=== PATIENT | female | born 1940 | race Two or more races ===

== ENCOUNTER 2017-12-21 16:08 | Emergency (ER) | payer OTHER ==
[~2017-12-21] VITALS: Ht 160 cm; Wt 88.9 kg
--- NOTE | 2017-12-21 17:20 | Diagnostic Imaging Report ---
A single frontal view of the chest. HISTORY: Shortness of breath COMPARISON: None available. DISCUSSION: Portable technique, limits sensitivity of the exam. Mild right anterior oblique rotation. Tubes/Lines: None Lungs and pleura: Mild right apical pleural-parenchymal scarring. Diffuse prominence of the pulmonary interstitial markings. No evidence of a consolidative pneumonia or pulmonary alveolar edema. No definite pleural effusion or pneumothorax is identified. Heart and mediastinum: The cardiac silhouette appears within the upper limits of normal. Bones: No acute osseous lesion is identified, given this limited exam. Other: Metallic clips in the right upper quadrant of the abdomen are compatible with prior cholecystectomy. IMPRESSION: 1. No consolidative pneumonia or pulmonary alveolar edema. 2. Diffusely increased pulmonary interstitial markings, differential considerations include chronic interstitial lung disease or noncardiogenic pulmonary interstitial edema in the appropriate settings. Signed by: Dr. Rocky Hernadez D.O., M.M.M. on 12/21/2017 5:15 PM
[2017-12-21] MEDS ORDERED: LORAZEPAM INJ 2 MG/ML VIAL IV ONE (17:30)
[2017-12-21 17:37] LABS: BASOPHILS % 0.4 % (0.0-1.0); EOSINOPHILS # (AUTO) 0.3 (0.0-0.4); EOSINOPHILS % 4.5 % (0.0-6.0); HEMATOCRIT 39.6 % (34.2-44.1); HEMOGLOBIN 13.2 g/dL (12.0-16.0); LYMPHOCYTES # (AUTO) 1.9 (1.0-3.2); LYMPHOCYTES % 34.4 % (18.0-39.1); MEAN CORPUSCULAR HEMOGLOBIN 31.1 pg (28-32); MEAN CORPUSCULAR HGB CONC 33.3 g/dL (31-35); MEAN CORPUSCULAR VOLUME 93.4 fL (81-99); MONOCYTES # (AUTO) 0.5 (0.2-0.8); MONOCYTES % 9.4 % (4.4-11.3); NEUTROPHILS # (AUTO) 2.8 (2.1-6.9); NEUTROPHILS % 50.9 % (38.7-80.0); PLATELET COUNT 204 x10e3/uL (140-360); RED BLOOD COUNT 4.24 x10e6/uL (3.6-5.1); RED CELL DISTRIBUTION WIDTH 12.5 % (11.7-14.4)
[2017-12-21 17:46] LABS: BILIRUBIN,URINE NEGATIVE (NEGATIVE); CLARITY,URINE CLEAR (CLEAR); COLOR,URINE YELLOW (YELLOW); KETONES,URINE NEGATIVE (NEGATIVE); LEUKOCYTE ESTERASE ,URINE NEGATIVE (NEGATIVE); NITRITE,URINE NEGATIVE (NEGATIVE); PROTEIN,URINE DIPSTICK NEGATIVE (NEGATIVE); URINE UROBILINOGEN 0.2 mg/dL (0.2 - 1)
[2017-12-21 17:57] LABS: ALANINE AMINOTRANSFERASE 36 IU/L (0-55); ALBUMIN 3.8 g/dL (3.5-5.0); ALBUMIN/GLOBULIN RATIO 1.1 (0.8-2.0); ALKALINE PHOSPHATASE 109 IU/L (40-150); ANION GAP 16.4 mmol/L (8-16); BLOOD UREA NITROGEN 16 mg/dL (7-26); BUN/CREATININE RATIO 19 (6-25); CALCIUM 9.7 mg/dL (8.4-10.2); CARBON DIOXIDE 24 mmol/L (22-29); CHLORIDE 107 mmol/L (98-107); CREATINE KINASE 53 IU/L (29-168); CREATININE, SERUM 0.84 mg/dL (0.57-1.11); EST GLOMERULAR FILTRATION RATE > 60 ML/MIN (60-); GLUCOSE 98 mg/dL (74-118); POTASSIUM 4.4 mmol/L (3.5-5.1); SODIUM 143 mmol/L (136-145)
[2017-12-21 18:08] LABS: INR 1.03; PROTHROMBIN TIME 12.7 seconds (11.9-14.5)
[2017-12-21 18:09] LABS: PARTIAL THROMBOPLASTIN TIME 32.1 seconds (23.8-35.5)
[2017-12-21] MEDS: MORPHINE SULFATE 2 MG/ML SYR IV STA ×2 (18:33→18:38)
--- NOTE | 2017-12-21 19:46 | Diagnostic Imaging Report ---
Exam: Lumbar spine MRI without IV contrast History: Injury to spine, pain, loss of bladder function, concern for cord compression. Comparison studies: None Technique: Sagittal and axial T2 , sagittal T1 and IR, axial spin density oblique, coronal T2. 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 Recommend careful attention to lumbar counting if patient is a candidate for surgical intervention. Alignment: Normal lordosis. No scoliosis. Mild lumbar curvature convex to the right. Soft tissues: No T2 hyperintense inflammatory changes. Paraspinal muscles: Bilateral atrophy, worse/moderate from L4 to the sacrum No T2 hyperintense inflammatory changes. Lower thoracic cord: Normal in signal and morphology. The tip of the conus terminates at L1. Cauda equina: No masses. No arachnoiditis. Vertebrae: Superior L2 endplate compression fracture with associated endplate edema results in approximately 25% height loss. No retropulsion. No other fractures or abnormal marrow edema. No evidence of infection or neoplasm. Degenerative changes: T12-L1: Mildly degenerated disc. Small asymmetric right disc bulge does not result in significant canal or foraminal stenosis. L1-L2: Small asymmetric right disc bulge without significant canal or foraminal stenosis. L2-L3: Mild facet arthrosis. Patent canal and foramina. L3-L4: Symmetric disc bulge and mild facet arthrosis without significant canal or foraminal stenosis. L4-L5: Loss of T2/STIR disc signal. Asymmetric left disc bulge with small right foraminal annular fissure and mild facet arthrosis with mild left foraminal stenosis. Patent canal and right foramen. L5-S1: Transitional level. Patent canal and foramina. Incidental findings: Small T2 hyperintense masses in the uterus may reflect small fibroids. IMPRESSION: 1. 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 2. No canal stenosis or cauda equina compression. 3. Acute superior L2 endplate compression fracture (approximately 25% height loss) without retropulsion. 4. Degenerative changes with mild multilevel disc degeneration, facet arthrosis at L3-L4 and L4-L5 and mild left L4-L5 foraminal stenosis. Findings discussed with Dr. Gasca at 7:37 PM on 12/21/2017. Signed by: Dr. Harish Cary M.D. on 12/21/2017 7:42 PM
[2017-12-21 21:15] VITALS: BP 199/82
== END 2017-12-21 21:15 | disposition home or self-care (01) ==
LOC: ER 16:08
DX: M54.5 Low back pain (principal); S32.020A Wedge compression fracture of second lumbar vertebra, initial encounter for closed fracture; X50.0XXA Overexertion from strenuous movement or load, initial encounter; I10 Essential (primary) hypertension; E78.5 Hyperlipidemia, unspecified
CPT/HCPCS: 36415; 71045; 72148; 80053; 81001; 82550; 82553; 83880; 84484; 85025; 85610; 85730; 99284; J2060; J2270

== ENCOUNTER 2019-09-18 10:10 | Emergency (ER) | payer MEDICARE, OTHER ==
[~2019-09-18] VITALS: Ht 162.6 cm; Wt 97.5 kg
[2019-09-18] MEDS ORDERED: MORPHINE SULFATE INJ 4 MG/ML INJ 1ML IV STA (10:34)
[2019-09-18] MEDS ORDERED: ONDANSETRON HCL INJ 2MG/ML 2ML 2 MG/ML VIAL IV STA (10:34)
[2019-09-18] MEDS ORDERED: KETOROLAC TROMETHAMINE 30 MG/ML VIAL IV STA (10:34)
[2019-09-18] MEDS ORDERED: SODIUM CHLORIDE 0.9% 500ML 500 ML IV STA (10:41)
[2019-09-18] MEDS ORDERED: SODIUM CHLORIDE 0.9% 500ML 500 ML ONE (10:48)
[2019-09-18] MEDS ORDERED: FAMOTIDINE 20 MG/2 ML VIAL IV STA (12:21)
[2019-09-18] MEDS ORDERED: METHYLPREDNISOLONE SOD SUCC 125 MG/2ML VIAL ONE (12:27)
[2019-09-18] MEDS ORDERED: DIPHENHYDRAMINE HCL INJ 50 MG/ML VIAL IV ONE (12:30)
[2019-09-18] MEDS ORDERED: METHYLPREDNISOLONE SOD SUCC 125 MG/2ML VIAL IV ONE (12:30)
--- NOTE | 2019-09-18 12:51 | Emergency Department Note ---
History of Present Illnes History of Present Illness Chief Complaint: left flank/ lbp History of Present Illness This is a 79 year old Other female. was doing well prior to this. Historian: Patient, Family Member Arrival Mode: Car History limited by: condition of the patient (normal) Finger Waver Required: No Onset (how long ago): hour(s) (6) Location: flank Quality: sharp Radiation: Reports flank Severity: moderate Onset quality: sudden Duration (how long): hour(s) (6) Timing of current episode: constant Progression: worsening Chronicity: new Context: Denies recent illness, Denies recent surgery, Denies recent immobili zation, Denies recent travel, Denies trauma/injury, Denies new medications, Denies hx of DVT/PE, Denies non-compliance w/ medications Relieving factors: none Exacerbating factors: none Associated symptoms: Reports denies other symptoms Treatments prior to arrival: none Past Medical/Family History Physician Review I have reviewed the patient's past medical and family history. Any updates have been documented here. Past Medical History Recent Fever: No Clinical Suspicion of Infectio: No New/Unexplained Change in Ment: No Past Medical History: Hypertension, Kidney Stones, Hyperlipedemia Past Surgical History: Cholecysctectomy, Tubal Ligation Other Surgery: lithotripsy Social History Smoking Cessation: Never Smoker Counseling Performed: No Alcohol Use: Social Any Illegal Drug Use: No TB Exposure/Symptoms: No Physically hurt or threatened: No Family History Family history of heart diseas: Yes Other Any Pre-Existing Lines (PICC,: No Is patient up to date on immun: Yes Last Flu: UTD Last Pneumovax: UTD Review of Systems Review of Systems Constitutional: Reports no symptoms EENTM: Reports no symptoms Cardiovascular: Reports no symptoms Respiratory: Reports no symptoms Gastrointestinal: Reports as per HPI Genitourinary: Reports no symptoms Musculoskeletal: Reports as per HPI Integumentary: Reports no symptoms Neurological: Reports no symptoms Psychological: Reports no symptoms Endocrine: Reports no symptoms Hematological/Lymphatic: Reports no symptoms Review of other systems: All other systems negative Physical Exam Related Data Allergies: Coded Allergies: Iodinated Contrast Media (Verified Allergy, Intermediate, eye swelling, ) Uncoded Allergies: STATINS (Allergy, Unknown, 09/18/19) lipitor is the only one she has tried and had a rx to but does not know what the rx was. Triage Vital Signs Vital Signs Date Time Temp Pulse Resp B/P (MAP) Pulse Ox O2 Delivery O2 Flow Rate FiO2 09/18/19 10:12 98.3 65 20 225/93 96 Vital signs reviewed: Yes Physical Exam CONSTITUTIONAL Constitutional: Present well-developed, Present well-nourished HENT HENT: Present normocephalic, Present atraumatic, Present oropharynx clear/moist, Present nose normal HENT L/R: Present left ext ear normal, Present right ext ear normal EYES Eyes: Reports PERRL, Reports conjunctivae normal, Reports EOM normal NECK Neck: Present ROM normal, Present supple PULMONARY Pulmonary: Present effort normal, Present breath sounds normal CARDIOVASCULAR Cardiovascular: Present regular rhythm, Present heart sounds normal, Present capillary refill normal, Present normal rate GASTROINTESTINAL Abdominal: Present soft, Present nontender, Present bowel sounds normal GENITOURINARY Genitourinary: Present exam deferred SKIN Skin: Present warm, Present dry MUSCULOSKELETAL Musculoskeletal: Present ROM normal, Present tenderness (left cva) NEUROLOGICAL Neurological: Present alert, Present oriented x 3, Present no gross motor or sensory deficits PSYCHOLOGICAL Psychological: Present mood/affect normal, Present judgement normal Results Laboratory Lab results reviewed: Yes (cbc/bmp/ua all normal) Imaging Imaging results reviewed: Yes (ct abd/pelvis kidney stone 4mm left uv junction) Assessment & Plan Medical Decision Making MDM rx meds(see below) f/u urology Reassessment Reassessment [place] [employer] OVERDOSE RISK SCORE= 270. no more pain s/p meds Assessment & Plan Final Impression: (1) Ureterolithiasis (2) Hypertension Depart Disposition: HOME, SELF-CARE Last Vital Signs Date Time Temp Pulse Resp B/P (MAP) Pulse Ox O2 Delivery O2 Flow Rate FiO2 09/18/19 10:12 98.3 65 20 225/93 96 Home Meds Active Scripts Cefdinir (OMNICEF) 300 Mg Capsule, 300 MG PO Q12H, #20 CAP Prov:NOEMI GAYTAN 09/18/19 Tramadol Hcl (ULTRAM) 50 Mg Tablet, 50 MG PO Q4HR PRN for MODERATE PAIN (4-6), #30 TAB take after toradol to control pain if need be Prov:NOEMI GAYTAN 09/18/19 Tamsulosin Hcl* (FLOMAX*) 0.4 Mg Cap, 0.4 MG PO DAILY, #15 CAP Prov:NOEMI GAYTAN 09/18/19 Ketorolac Tromethamine (TORADOL) 10 Mg Tablet, 10 TAB PO DAILY PRN for MODERATE PAIN (4-6), #20 TAB Prov:NOEMI GAYTAN 09/18/19 Ondansetron (ONDANSETRON ODT) 8 Mg Tab.rapdis, 4 TAB PO Q4HR PRN for NAUSEA AND VOMITING, #20 TAB 1 Refill Prov:NOEMI GAYTAN 09/18/19 Medications in the ED Ketorolac Tromethamine 30 mg ONCE STAT IV Last administered on 09/18/19at 10:55; Admin Dose 30 MG; Start 09/18/19 at 10:34; Stop 09/18/19 at 10:47; Status DC Ondansetron HCl 4 mg NOW STAT IV Last administered on 09/18/19at 10:50; Admin Dose 4 MG; Start 09/18/19 at 10:34; Stop 09/18/19 at 10:47; Status DC Morphine Sulfate 4 mg ONCE STAT IV Last administered on 09/18/19at 10:55; Admin Dose 4 MG; Start 09/18/19 at 10:34; Stop 09/18/19 at 10:47; Status DC Sodium Chloride 500 ml @ 500 mls/hr Q1H STAT IV Last administered on 09/18/19at 10:50; Admin Dose 500 MLS/HR; Start 09/18/19 at 10:41; Stop 09/18/19 at 11:40; Status DC [facility] ; Start 09/18/19 at 10:48; Stop 09/18/19 at 10:44; Status DC Diphenhydramine HCl 25 mg NOW ONCE IV Last administered on 09/18/19at 12:22; Admin Dose 25 MG; Start 09/18/19 at 12:30; Stop 09/18/19 at 12:31; Status DC Famotidine 20 mg NOW STAT IV Last administered on 09/18/19at 12:22; Admin Dose 20 MG; Start 09/18/19 at 12:21; Stop 09/18/19 at 12:29; Status DC Methylprednisolone Sodium Succinate 125 mg ONCE ONCE IV Last administered on 09/18/19at 12:22; Admin Dose 125 MG; Start 09/18/19 at 12:30; Stop 09/18/19 at 12:31; Status DC Methylprednisolone Sodium Succinate 125 mg [facility] ONCE .ROUTE ; Start 09/18/19 at 12:27; Stop 09/18/19 at 12:23; Status DC NOEMI GAYTAN Sep 18, 2019 12:51
[2019-09-18] MEDS ORDERED: HYDROCODONE/APAP 5MG-325MG TAB PO STA (13:33)
--- NOTE | 2019-09-18 14:00 | Diagnostic Imaging Report ---
EXAM: CT Abdomen and Pelvis WITHOUT intravenous contrast INDICATION: Abdominal pain COMPARISON: Lumbar spine MRI 12/21/2017 TECHNIQUE: Abdomen and pelvis were scanned utilizing a multidetector helical scanner from the lung base to the pubic symphysis without administration of IV contrast. Coronal and sagittal reformations were obtained. IV CONTRAST: None ORAL CONTRAST: None COMPLICATIONS: None RADIATION DOSE: Total DLP: 288 mGy*cm Dose modulation, iterative reconstruction, and/or weight based adjustment of the mA/kV was utilized to reduce the radiation dose to as low as reasonably achievable. FINDINGS: LOWER THORAX: Mild dependent subsegmental atelectasis. HEPATOBILIARY: Evaluation of the liver is partially secured by streak artifact related to the patient's arms. No definite focal liver lesion. Status post cholecystectomy. SPLEEN: No splenomegaly. PANCREAS: No focal masses or ductal dilatation. ADRENALS: No adrenal nodules. KIDNEYS/URETERS: 4 mm left distal ureteral calculus at the left ureterovesical junction with moderate associated left hydroureteronephrosis and left perinephric fat stranding. No right urinary calculi, hydroureter or hydronephrosis. PELVIC ORGANS/BLADDER: Unremarkable. PERITONEUM / RETROPERITONEUM: No free air or fluid. LYMPH NODES: No lymphadenopathy. VESSELS: Moderate scattered atherosclerotic calcifications of the nonaneurysmal abdominal aorta and major branches. GI TRACT: No abnormal bowel thickening. No bowel obstruction. Normal appendix. BONES AND SOFT TISSUES: No acute osseous injury. Compression deformity of the superior endplate of L3 is unchanged from the lumbar spine MRI of 12/21/2017. No suspicious lytic or blastic lesions. IMPRESSION: 4 mm left distal ureteral calculus at the left ureterovesical junction results in moderate associated left hydroureteronephrosis and left perinephric fat stranding suggestive of upper urinary tract infection. No right urinary calculi or hydronephrosis. Signed by: Nga Bell MD on 09/18/2019 1:56 PM
[2019-09-18] MEDS ORDERED: HYDRALAZINE HCL 20 MG/ML VIAL ONE (14:13)
--- NOTE | 2019-09-18 14:16 | NUR ---
Urine culture collected and sent to the hospital lab via mass spec.
[2019-09-18] MEDS ORDERED: ULTRAM50 MG PO (14:17)
[2019-09-18] MEDS ORDERED: KETOROLAC TROME10 MG PO (14:17)
[2019-09-18] MEDS ORDERED: ONDANSETRON ODT8 MG PO (14:17)
[2019-09-18] MEDS ORDERED: FLOMAX0.4 MG PO (14:17)
[2019-09-18] MEDS ORDERED: CEFDINIR300 MG PO (14:18)
[2019-09-18 14:47] VITALS: BP 174/74
== END 2019-09-18 14:43 | disposition home or self-care (01) ==
LOC: FSED 10:10
DX: M54.5 Low back pain (principal); N20.1 Calculus of ureter; I10 Essential (primary) hypertension; E78.5 Hyperlipidemia, unspecified
CPT/HCPCS: 74176; 80048; 81003; 85025; 87086; 96374; 96375; 99284; J0360; J1200; J1885; J2270; J2405; J2930; J7040

== ENCOUNTER 2020-06-06 13:55 | Emergency (ER) | payer MEDICARE ==
[~2020-06-06] VITALS: Ht 160 cm; Wt 82.2 kg
[~2020-06-06 13:55] MED LIST: CEFDINIR300 MG PO; FLOMAX0.4 MG PO; KETOROLAC TROME10 MG PO; ONDANSETRON ODT8 MG PO; ULTRAM50 MG PO
[2020-06-06] MEDS ORDERED: CLONIDINE HCL 0.2 MG TAB PO ONE (14:30)
[2020-06-06] MEDS ORDERED: ROPINIROLE HCL1 MG PO (14:50)
[2020-06-06] MEDS ORDERED: PROVENTIL HFA6.7 GM INH (14:50)
[2020-06-06] MEDS ORDERED: CLONAZEPAM0.5 MG PO (14:50)
[2020-06-06] MEDS ORDERED: NEURONTIN300 MG PO (14:50)
[2020-06-06] MEDS ORDERED: ASPIRIN EC81 MG PO (14:50)
[2020-06-06] MEDS ORDERED: OCUVITE TABLET1 EAC1 PO (14:50)
[2020-06-06] MEDS ORDERED: TYLENOL # 31 EA PO (14:50)
[2020-06-06] MEDS ORDERED: MAGNESIUM OXID400 MG PO (14:50)
[2020-06-06] MEDS ORDERED: BIOTIN10 MG (14:50)
[2020-06-06] MEDS ORDERED: CARVEDILOL12.5 MG PO (14:50)
[2020-06-06] MEDS ORDERED: BIOTIN2500 MCG (14:50)
[2020-06-06 16:01] VITALS: BP 176/90
== END 2020-06-06 15:32 | disposition home or self-care (01) ==
LOC: FSED 14:19
DX: S00.83XA Contusion of other part of head, initial encounter (principal); R11.2 Nausea with vomiting, unspecified; W18.09XA Striking against other object with subsequent fall, initial encounter; Y93.01 Activity, walking, marching and hiking; Y92.008 Other place in unspecified non-institutional (private) residence as the place of occurrence of the external cause; M54.9 Dorsalgia, unspecified; G89.29 Other chronic pain; I25.2 Old myocardial infarction; Z87.442 Personal history of urinary calculi
CPT/HCPCS: 70450; 72125; 99283

== ENCOUNTER 2022-01-06 16:56 | Inpatient (IN) | payer MEDICARE ==
[~2022-01-06] VITALS: Ht 160 cm; Wt 96.2 kg
[~2022-01-06 16:56] MED LIST changes: +ASPIRIN EC81 MG PO; +BIOTIN10 MG; +BIOTIN2500 MCG; +CARVEDILOL12.5 MG PO; +CLONAZEPAM0.5 MG PO; +MAGNESIUM OXID400 MG PO; +NEURONTIN300 MG PO; +OCUVITE TABLET1 EAC1 PO; +PROVENTIL HFA6.7 GM INH; +ROPINIROLE HCL1 MG PO; +TYLENOL # 31 EA PO
[2022-01-06 17:22] LABS: BASOPHILS % 0.4 % (0.0-1.0); EOSINOPHILS # (AUTO) 0.1 (0.0-0.4); EOSINOPHILS % 1.6 % (0.0-6.0); HEMATOCRIT 48.7 % (34.2-44.1); HEMOGLOBIN 15.8 g/dL (12.0-16.0); LYMPHOCYTES # (AUTO) 2.2 (1.0-3.2); LYMPHOCYTES % 27.3 % (18.0-39.1); MEAN CORPUSCULAR HEMOGLOBIN 31.2 pg (28-32); MEAN CORPUSCULAR HGB CONC 32.4 g/dL (31-35); MEAN CORPUSCULAR VOLUME 96.1 fL (81-99); MONOCYTES # (AUTO) 0.7 (0.2-0.8); MONOCYTES % 8.2 % (4.4-11.3); NEUTROPHILS % 62.1 % (38.7-80.0); PLATELET COUNT 231 x10e3/uL (140-360); RED BLOOD COUNT 5.07 x10e6/uL (3.6-5.1); RED CELL DISTRIBUTION WIDTH 12.3 % (11.7-14.4)
[2022-01-06 17:34] LABS: ALBUMIN 3.9 g/dL (3.5-5.0); ANION GAP 16.3 mmol/L (8-16); CALCIUM 9.5 mg/dL (8.4-10.2); CREATININE, SERUM 1.05 mg/dL (0.57-1.11); POTASSIUM 4.3 mmol/L (3.5-5.1)
[2022-01-06 18:41] LABS: CLARITY,URINE CLEAR (CLEAR); COLOR,URINE AMBER (YELLOW); KETONES,URINE NEGATIVE (NEGATIVE); LEUKOCYTE ESTERASE ,URINE NEGATIVE (NEGATIVE); NITRITE,URINE NEGATIVE (NEGATIVE); PROTEIN,URINE DIPSTICK TRACE (NEGATIVE); URINE UROBILINOGEN 1 mg/dL (0.2 - 1)
[2022-01-06] MEDS ORDERED: ONDANSETRON HCL INJ 2MG/ML 2ML 2 MG/ML VIAL IV STA (18:48)
[2022-01-06 18:51] LABS: BACTERIA,URINE FEW /HPF; EPITHELIAL CELLS,URINE FEW /LPF; WBC,URINE (MAN) 0-5 /HPF (0-5)
[2022-01-06] MEDS: ONDANSETRON HCL INJ 2MG/ML 2ML 2 MG/ML VIAL IV PRN (19:35)
[2022-01-06] MEDS: FENTANYL CITRATE/PF 100MCG/2 ML INJ IV PRN ×2 (19:35→23:30)
[2022-01-06] MEDS ORDERED: BENZOCAINE/TETRACAINE/BUTAMBEN AERO SPRAY 56 GM CAN TOP ONE (20:15)
[2022-01-06] MEDS ORDERED: BENZOCAINE/TETRACAINE/BUTAMBEN AERO SPRAY 56 GM CAN ONE (20:29)
[2022-01-06] MEDS: SODIUM CHLORIDE 0.9% 1000ML 1,000 ML IV SCH (20:35)
[2022-01-07] VITALS (7 sets, daily range): BP systolic 121–154; BP diastolic 60–72
[2022-01-07] MEDS ORDERED: INFLUENZA VIRUS VAC SPLIT INJ 0.5 ML SYR IM SCH (03:17)
[2022-01-07] MEDS: ONDANSETRON HCL INJ 2MG/ML 2ML 2 MG/ML VIAL IV PRN ×3 (04:01→16:16)
[2022-01-07] MEDS: Morphine 4mg INJECTION 4 MG/ML INJ IV PRN ×3 (04:01→16:16)
[2022-01-07 06:52] LABS: BASOPHILS % 0.5 % (0.0-1.0); EOSINOPHILS # (AUTO) 0.1 (0.0-0.4); EOSINOPHILS % 0.9 % (0.0-6.0); HEMATOCRIT 42.9 % (34.2-44.1); HEMOGLOBIN 14.4 g/dL (12.0-16.0); LYMPHOCYTES # (AUTO) 2.2 (1.0-3.2); LYMPHOCYTES % 25.9 % (18.0-39.1); MEAN CORPUSCULAR HEMOGLOBIN 31.4 pg (28-32); MEAN CORPUSCULAR HGB CONC 33.6 g/dL (31-35); MEAN CORPUSCULAR VOLUME 93.7 fL (81-99); MONOCYTES # (AUTO) 0.9 (0.2-0.8); MONOCYTES % 10.7 % (4.4-11.3); NEUTROPHILS # (AUTO) 5.3 (2.1-6.9); NEUTROPHILS % 61.5 % (38.7-80.0); PLATELET COUNT 205 x10e3/uL (140-360); RED BLOOD COUNT 4.58 x10e6/uL (3.6-5.1); RED CELL DISTRIBUTION WIDTH 12.7 % (11.7-14.4)
[2022-01-07 07:14] LABS: ANION GAP 12.2 mmol/L (8-16); CALCIUM 8.6 mg/dL (8.4-10.2); CREATININE, SERUM 1.14 mg/dL (0.57-1.11); POTASSIUM 4.2 mmol/L (3.5-5.1)
[2022-01-07] MEDS: SODIUM CHLORIDE 0.9% 1000ML 1,000 ML IV SCH (08:22)
[2022-01-07] MEDS ORDERED: ALBUTEROL/IPRATROPIUM 3 ML NEB NEB PRN (12:15)
[2022-01-07] MEDS ORDERED: CHLORASEPTIC SPRAY 177 ML BTL MM PRN (12:15)
[2022-01-07] MEDS: LACTATED RINGER'S 1,000 ML INJ SCH ×2 (13:05→22:51)
[2022-01-07] MEDS ORDERED: FAMOTIDINE 20 MG/2 ML VIAL IV SCH (17:00)
[2022-01-07] MEDS: ENOXAPARIN 30 MG/0.3 ML SYR SC SCH (17:06)
[2022-01-08] VITALS (7 sets, daily range): BP systolic 124–167; BP diastolic 50–58
[2022-01-08] MEDS: Morphine 4mg INJECTION 4 MG/ML INJ IV PRN ×2 (00:04→04:44)
[2022-01-08] MEDS: LACTATED RINGER'S 1,000 ML INJ SCH ×2 (08:30→18:30)
[2022-01-08] MEDS: FAMOTIDINE 20 MG/2 ML VIAL IV SCH ×2 (09:00→21:00)
[2022-01-08] MEDS ORDERED: HYDRALAZINE HCL 20 MG/ML VIAL IV PRN (12:45)
[2022-01-08] MEDS ORDERED: SODIUM CHLORIDE 0.9% 250ML IRRIG IR SCH (14:30)
[2022-01-08] MEDS: ENOXAPARIN 30 MG/0.3 ML SYR SC SCH (17:33)
[2022-01-09] VITALS (7 sets, daily range): BP systolic 142–165; BP diastolic 50–77
[2022-01-09] MEDS: LACTATED RINGER'S 1,000 ML INJ SCH ×2 (04:30→14:30)
[2022-01-09] MEDS: FAMOTIDINE 20 MG/2 ML VIAL IV SCH (09:00)
[2022-01-09] MEDS: ENOXAPARIN 30 MG/0.3 ML SYR SC SCH (17:00)
== END 2022-01-09 18:00 | disposition home or self-care (01) | DRG 389 ==
LOC: ER 17:08 → ERHOLD 19:36 → MED/SURG 01-07 01:46
PROVIDERS: ADMIT Internal Medicine; ATTEND Internal Medicine
PROC: 0D9670Z Drainage of Stomach with Drainage Device, Via Natural or Artificial Opening (ICD-10-PCS; principal; 2022-01-06)
DX: K56.51 Intestinal adhesions [bands], with partial obstruction (principal); J96.10 Chronic respiratory failure, unspecified whether with hypoxia or hypercapnia; I10 Essential (primary) hypertension; R91.8 Other nonspecific abnormal finding of lung field; J44.9 Chronic obstructive pulmonary disease, unspecified; E66.9 Obesity, unspecified; Z68.37 Body mass index [BMI] 37.0-37.9, adult; I25.2 Old myocardial infarction; Z87.442 Personal history of urinary calculi; Z90.49 Acquired absence of other specified parts of digestive tract; Z95.0 Presence of cardiac pacemaker; Z88.8 Allergy status to other drugs, medicaments and biological substances; Z91.041 Radiographic dye allergy status; Z99.81 Dependence on supplemental oxygen; Z20.822 Contact with and (suspected) exposure to COVID-19
CPT/HCPCS: 36415; 71045; 74018; 74176; 80048; 80053; 81001; 83690; 83880; 84484; 85025; 93005; 94799; 99284; J1650; J2270; J2405; J3010; J7030; J7121

== ENCOUNTER 2022-02-02 09:38 | Emergency (ER) | payer MEDICARE ==
[~2022-02-02] VITALS: Ht 160 cm; Wt 96.2 kg
[2022-02-02] MEDS ORDERED: SODIUM CHLORIDE 0.9% 1000ML 1,000 ML IV STA (09:58)
[2022-02-02] MEDS ORDERED: DICYCLOMINE HCL 20 MG/2 ML VIAL IM ONE (10:00)
[2022-02-02] MEDS ORDERED: ONDANSETRON HCL INJ 2MG/ML 2ML 2 MG/ML VIAL IV PRN (10:00)
[2022-02-02 10:21] LABS: BASOPHILS % 0.4 % (0.0-1.0); EOSINOPHILS # (AUTO) 0.2 (0.0-0.4); HEMATOCRIT 46.7 % (34.2-44.1); HEMOGLOBIN 15.2 g/dL (12.0-16.0); LYMPHOCYTES # (AUTO) 1.9 (1.0-3.2); LYMPHOCYTES % 27.1 % (18.0-39.1); MEAN CORPUSCULAR HEMOGLOBIN 30.8 pg (28-32); MEAN CORPUSCULAR HGB CONC 32.5 g/dL (31-35); MEAN CORPUSCULAR VOLUME 94.7 fL (81-99); MONOCYTES # (AUTO) 0.7 (0.2-0.8); MONOCYTES % 10.2 % (4.4-11.3); NEUTROPHILS # (AUTO) 4.1 (2.1-6.9); NEUTROPHILS % 58.7 % (38.7-80.0); PLATELET COUNT 203 x10e3/uL (140-360); RED BLOOD COUNT 4.93 x10e6/uL (3.6-5.1); RED CELL DISTRIBUTION WIDTH 11.8 % (11.7-14.4)
[2022-02-02 10:42] LABS: ALBUMIN 3.7 g/dL (3.5-5.0); ANION GAP 15.7 mmol/L (8-16); CALCIUM 9.1 mg/dL (8.4-10.2); CREATININE, SERUM 1.05 mg/dL (0.57-1.11); POTASSIUM 3.7 mmol/L (3.5-5.1)
[2022-02-02 12:08] LABS: CLARITY,URINE CLOUDY (CLEAR); COLOR,URINE YELLOW (YELLOW); KETONES,URINE 1+ (NEGATIVE); LEUKOCYTE ESTERASE ,URINE SMALL (NEGATIVE); NITRITE,URINE NEGATIVE (NEGATIVE); PROTEIN,URINE DIPSTICK 1+ (NEGATIVE); URINE UROBILINOGEN 1 mg/dL (0.2 - 1)
[2022-02-02 12:44] LABS: BACTERIA,URINE MODERATE /HPF; EPITHELIAL CELLS,URINE MODERATE /LPF; WBC,URINE (MAN) 21-50 /HPF (0-5)
[2022-02-02] MEDS ORDERED: ONDANSETRON ODT4 MG PO (12:44)
[2022-02-02] MEDS ORDERED: CEPHALEXIN500 MG PO (12:46)
== END 2022-02-02 13:09 | disposition home or self-care (01) ==
LOC: ER 09:42
DX: N39.0 Urinary tract infection, site not specified (principal); R19.7 Diarrhea, unspecified; R53.1 Weakness; Z28.310 Unvaccinated for COVID-19; Z88.8 Allergy status to other drugs, medicaments and biological substances; Z91.041 Radiographic dye allergy status; Z20.822 Contact with and (suspected) exposure to COVID-19
CPT/HCPCS: 36415; 74176; 80053; 81001; 83690; 84484; 85025; 87400; 93005; 99284; J0500; J2405; J7030; U0002

== ENCOUNTER 2022-06-02 17:13 | Inpatient (IN) | payer MEDICARE ==
[~2022-06-02] VITALS: Ht 162.6 cm; Wt 104.8 kg
[~2022-06-02 17:13] MED LIST changes: +CEPHALEXIN500 MG PO; +ONDANSETRON ODT4 MG PO
[2022-06-02 18:13] LABS: BASOPHILS % 0.6 % (0.0-1.0); EOSINOPHILS # (AUTO) 0.2 (0.0-0.4); HEMATOCRIT 40.1 % (34.2-44.1); HEMOGLOBIN 13.7 g/dL (12.0-16.0); LYMPHOCYTES # (AUTO) 2.2 (1.0-3.2); LYMPHOCYTES % 31.5 % (18.0-39.1); MEAN CORPUSCULAR HEMOGLOBIN 32.5 pg (28-32); MEAN CORPUSCULAR HGB CONC 34.2 g/dL (31-35); MEAN CORPUSCULAR VOLUME 95.2 fL (81-99); MONOCYTES # (AUTO) 0.6 (0.2-0.8); MONOCYTES % 8.7 % (4.4-11.3); NEUTROPHILS # (AUTO) 3.8 (2.1-6.9); NEUTROPHILS % 55.6 % (38.7-80.0); PLATELET COUNT 195 x10e3/uL (140-360); RED BLOOD COUNT 4.21 x10e6/uL (3.6-5.1); RED CELL DISTRIBUTION WIDTH 12.9 % (11.7-14.4)
[2022-06-02 18:29] LABS: ALBUMIN 3.5 g/dL (3.5-5.0); ALBUMIN/GLOBULIN RATIO 0.9 (0.8-2.0); ANION GAP 15.6 mmol/L (8-16); CALCIUM 8.8 mg/dL (8.4-10.2); CREATININE, SERUM 1.03 mg/dL (0.57-1.11); POTASSIUM 4.6 mmol/L (3.5-5.1)
[2022-06-02 18:35] LABS: CREATINE KINASE MB 1.7 ng/mL (0-5.0)
[2022-06-02 18:47] LABS: CLARITY,URINE CLEAR (CLEAR); COLOR,URINE YELLOW (YELLOW); KETONES,URINE NEGATIVE (NEGATIVE); LEUKOCYTE ESTERASE ,URINE NEGATIVE (NEGATIVE); NITRITE,URINE NEGATIVE (NEGATIVE); PROTEIN,URINE DIPSTICK NEGATIVE (NEGATIVE); URINE UROBILINOGEN 0.2 mg/dL (0.2 - 1)
[2022-06-02 18:55] LABS: AMORPHOUS SEDIMENT,URINE MODERATE (FEW); BACTERIA,URINE FEW /HPF; EPITHELIAL CELLS,URINE FEW /LPF
[2022-06-02] MEDS ORDERED: ONDANSETRON HCL INJ 2MG/ML 2ML 2 MG/ML VIAL IV STA (19:58)
[2022-06-02] MEDS ORDERED: FAMOTIDINE 20 MG/2 ML VIAL IV STA (19:58)
[2022-06-02] MEDS ORDERED: Morphine 4mg INJECTION 4 MG/ML INJ IV STA (19:58)
[2022-06-02] MEDS ORDERED: ASPIRIN 81 MG CHEW TAB PO ONE (20:15)
[2022-06-02] MEDS: ROPINIROLE HCL 2 MG TAB PO SCH (22:24)
[2022-06-03 03:42] LABS: BASOPHILS % 0.6 % (0.0-1.0); EOSINOPHILS # (AUTO) 0.3 (0.0-0.4); EOSINOPHILS % 4.1 % (0.0-6.0); HEMATOCRIT 38.1 % (34.2-44.1); HEMOGLOBIN 12.1 g/dL (12.0-16.0); LYMPHOCYTES # (AUTO) 2.2 (1.0-3.2); LYMPHOCYTES % 32.9 % (18.0-39.1); MEAN CORPUSCULAR HEMOGLOBIN 30.3 pg (28-32); MEAN CORPUSCULAR HGB CONC 31.8 g/dL (31-35); MEAN CORPUSCULAR VOLUME 95.3 fL (81-99); MONOCYTES # (AUTO) 0.7 (0.2-0.8); MONOCYTES % 10.6 % (4.4-11.3); NEUTROPHILS # (AUTO) 3.4 (2.1-6.9); NEUTROPHILS % 51.5 % (38.7-80.0); PLATELET COUNT 186 x10e3/uL (140-360); RED CELL DISTRIBUTION WIDTH 12.8 % (11.7-14.4)
[2022-06-03 04:06] LABS: CREATINE KINASE MB 1.4 ng/mL (0-5.0)
[2022-06-03 04:22] LABS: ALBUMIN 2.9 g/dL (3.5-5.0); ANION GAP 13.9 mmol/L (8-16); CREATININE, SERUM 0.95 mg/dL (0.57-1.11); POTASSIUM 3.9 mmol/L (3.5-5.1)
[2022-06-03] MEDS: ROPINIROLE HCL 2 MG TAB PO SCH ×2 (08:50→20:50)
[2022-06-03] MEDS ORDERED: CLONIDINE HCL 0.1 MG TAB PO PRN (10:45)
[2022-06-03] MEDS ORDERED: ACETAMINOPHEN 325 MG TAB PO PRN (10:45)
[2022-06-03] MEDS ORDERED: ALBUTEROL SULFATE HFA 8GM INHALATION AEROSOL INH PRN (10:45)
[2022-06-03] MEDS ORDERED: ONDANSETRON HCL 4 MG ORAL DISINTEGRATING TAB PO PRN (10:45)
[2022-06-03] MEDS: ACETAMINOPHEN/CODEINE 300MG - 30MG TAB PO PRN ×2 (11:34→22:02)
[2022-06-03] MEDS: PANTOPRAZOLE SOD 40 MG TABEC PO SCH (13:22)
[2022-06-03 14:52] LABS: CREATINE KINASE MB 2.3 ng/mL (0-5.0)
[2022-06-03 16:23] VITALS: BP 121/61
[2022-06-03 16:30] VITALS: BP 121/61
[2022-06-03 20:00] VITALS: BP 139/46
[2022-06-03] MEDS: CLONAZEPAM 0.5 MG TAB PO SCH (20:50)
[2022-06-03] MEDS: CARVEDILOL 12.5 MG TAB PO SCH (20:51)
[2022-06-03] MEDS ORDERED: BISACODYL 5 MG TAB EC PO ONE ×2 (23:33→23:36)
[2022-06-04] VITALS (7 sets, daily range): BP systolic 121–150; BP diastolic 51–73
[2022-06-04] MEDS ORDERED: BISACODYL 5 MG TAB EC PO ONE ×2 (02:00)
[2022-06-04] MEDS ORDERED: PEG (High)/E-LYTE SOLN 4,000 ML BTL PO ONE (05:00)
[2022-06-04] MEDS: ROPINIROLE HCL 2 MG TAB PO SCH ×2 (09:19→17:12)
[2022-06-04] MEDS: ASPIRIN 81 MG ENTERIC COATED PO SCH (09:19)
[2022-06-04] MEDS: LUBIPROSTONE 24 MCG CAP PO SCH ×2 (09:19→17:12)
[2022-06-04] MEDS: CLONAZEPAM 0.5 MG TAB PO SCH ×2 (09:19→17:12)
[2022-06-04] MEDS: PANTOPRAZOLE SOD 40 MG TABEC PO SCH (09:19)
[2022-06-04] MEDS: MAGNESIUM OXIDE 400 MG TAB PO SCH (09:20)
[2022-06-04] MEDS: CARVEDILOL 12.5 MG TAB PO SCH (21:00)
[2022-06-05 00:34] VITALS: BP 125/50
[2022-06-05 04:41] VITALS: BP 103/67
[2022-06-05 05:55] LABS: BASOPHILS % 0.3 % (0.0-1.0); EOSINOPHILS # (AUTO) 0.1 (0.0-0.4); EOSINOPHILS % 1.5 % (0.0-6.0); HEMATOCRIT 40.5 % (34.2-44.1); HEMOGLOBIN 13.1 g/dL (12.0-16.0); LYMPHOCYTES # (AUTO) 2.4 (1.0-3.2); LYMPHOCYTES % 27.4 % (18.0-39.1); MEAN CORPUSCULAR HEMOGLOBIN 30.5 pg (28-32); MEAN CORPUSCULAR HGB CONC 32.3 g/dL (31-35); MEAN CORPUSCULAR VOLUME 94.2 fL (81-99); MONOCYTES # (AUTO) 0.9 (0.2-0.8); MONOCYTES % 10.5 % (4.4-11.3); NEUTROPHILS # (AUTO) 5.1 (2.1-6.9); NEUTROPHILS % 59.8 % (38.7-80.0); PLATELET COUNT 212 x10e3/uL (140-360); RED CELL DISTRIBUTION WIDTH 12.4 % (11.7-14.4)
[2022-06-05 06:17] LABS: ANION GAP 14.4 mmol/L (8-16); CALCIUM 8.8 mg/dL (8.4-10.2); CREATININE, SERUM 1.51 mg/dL (0.57-1.11); POTASSIUM 3.4 mmol/L (3.5-5.1)
[2022-06-05 07:30] VITALS: BP 111/57
[2022-06-05 07:54] VITALS: BP 111/57
[2022-06-05] MEDS: LUBIPROSTONE 24 MCG CAP PO SCH (08:29)
[2022-06-05] MEDS: MAGNESIUM OXIDE 400 MG TAB PO SCH (08:29)
[2022-06-05] MEDS: ASPIRIN 81 MG ENTERIC COATED PO SCH (08:29)
[2022-06-05] MEDS: ROPINIROLE HCL 2 MG TAB PO SCH (08:29)
[2022-06-05] MEDS: CLONAZEPAM 0.5 MG TAB PO SCH (08:29)
[2022-06-05] MEDS: PANTOPRAZOLE SOD 40 MG TABEC PO SCH (08:29)
[2022-06-05 11:30] VITALS: BP 120/51
[2022-06-05] MEDS ORDERED: SODIUM CHLORIDE 0.9% 1000ML 1,000 ML IV SCH (13:00)
[2022-06-05] MEDS ORDERED: POTASSIUM CHLORIDE 10MEQ EA PO ONE (13:15)
[2022-06-05 14:56] LABS: ANION GAP 11.4 mmol/L (8-16); CALCIUM 8.4 mg/dL (8.4-10.2); CREATININE, SERUM 1.62 mg/dL (0.57-1.11); POTASSIUM 3.4 mmol/L (3.5-5.1)
[2022-06-05 16:10] VITALS: BP 131/54
[2022-06-05 16:24] LABS: ANION GAP 12.8 mmol/L (8-16); CALCIUM 8.3 mg/dL (8.4-10.2); CREATININE, SERUM 1.44 mg/dL (0.57-1.11); POTASSIUM 3.8 mmol/L (3.5-5.1)
== END 2022-06-05 17:23 | disposition home or self-care (01) | DRG 392 ==
LOC: ER 17:50 → ERHOLD 20:14 → MED/SURG3 06-03 16:00 → OBSVTOIN 06-04 15:46
PROVIDERS: ADMIT Internal Medicine; ATTEND Internal Medicine
DX: R10.13 Epigastric pain (principal); N17.9 Acute kidney failure, unspecified; I25.2 Old myocardial infarction; I10 Essential (primary) hypertension; M54.9 Dorsalgia, unspecified; G89.29 Other chronic pain; G25.81 Restless legs syndrome; K59.00 Constipation, unspecified; E78.5 Hyperlipidemia, unspecified; R07.9 Chest pain, unspecified; Z20.822 Contact with and (suspected) exposure to COVID-19; Z95.810 Presence of automatic (implantable) cardiac defibrillator; Z90.49 Acquired absence of other specified parts of digestive tract; Z87.891 Personal history of nicotine dependence
CPT/HCPCS: 36415; 71045; 74176; 80048; 80053; 81001; 82270; 82550; 82553; 83880; 84484; 85025; 87324; 87449; 93005; 93306; 94799; 99284; G0378; J2270; J2405; J7030; Q0162